=== PATIENT | male | born 1945 | race Caucasian/White ===

== ENCOUNTER → 2021-02-09 13:08 | Outpatient (CLI) | payer MEDICARE, SELFPAY ==
--- NOTE | 2021-02-09 14:29 | DI.MRI.S_ITS ---
PROCEDURE: MR ANKLE LT WO CON INDICATIONS: LEFT CALCANEUS TECHNIQUE: Noncontrast sagittal T1 spin echo and T2 fast spin echo with fat saturation, axial proton density fast spin echo and T2 fast spin echo with fat saturation, coronal T1 spin echo and T2 fast spin echo with fat saturation through the ankle/hindfoot. COMPARISON: None. FINDINGS: Image quality: Excellent. Bones and joints: No bone marrow contusions or fractures. An os naviculare is seen. No osteochondral injuries of the talar dome. No pathologic joint effusions. Medial structures: The posterior tibialis, flexor digitorum longus, and flexor hallucis longus tendons are intact. Fluid surrounds the flexor digitorum and hallucis longus, compatible with tenosynovitis. The posterior tibial neurovascular bundle appears normal within the tarsal tunnel, without extrinsic mass effect. The deltoid and spring ligaments are intact. Lateral structures: The anterior talofibular, calcaneofibular, and posterior talofibular ligaments appear intact. More superiorly, the anterior and posterior tibiofibular ligaments appear intact. The tibiofibular syndesmosis contains T2 hyperintense signal and is widening, measuring up to 3.5 mm. The peroneus longus and brevis tendons demonstrate normal location and morphology. The sinus tarsi demonstrates normal fatty signal, without edema, fibrosis, or cyst formation. Anterior structures: The tibialis anterior, extensor hallucis longus, and extensor digitorum longus tendons appear intact. The dorsal talonavicular ligament appears intact. Posterior and plantar structures: Achilles tendon is intact. Small foci of intrasubstance T2 hyperintense signal, which may reflect tendinopathy or small partial tears. Thickening of the plantar fascia at the calcaneal attachment with evidence of partial tear. No abductor digiti quinti muscle atrophy to suggest Hidalgo neuropathy. IMPRESSION: 1. Partial tear of the plantar fascia at the calcaneal attachment. 2. Fluid surrounding the flexor digitorum and hallucis longus, compatible with tenosynovitis. 3. Widening of the tibiofibular syndesmosis. 4. Achilles tendinopathy versus small partial tears. Dictated by: Calixto Wong M.D. on 02/09/2021 at 14:56 Approved by: Calixto Wong M.D. on 02/09/2021 at 15:09
== END ==
PROVIDERS: Referring Provider Podiatrist; Visit Provider Podiatrist
DX: M72.2 Plantar fascial fibromatosis (principal)
CPT/HCPCS: 73721